=== PATIENT | female | born 1985 | race Caucasian/White ===

== ENCOUNTER 2016-11-23 17:39 | Emergency (ER) | payer OTHER ==
[2016-11-23 17:39] VITALS: BMI 18.5
[2016-11-23 17:51] VITALS: BP 114/71; PULSE 73; RESP 16; TEMP 98.3; O2SAT 100
--- NOTE | 2016-11-23 18:25 | ED PDOC ---
HPI: Abdomen Time Seen by Provider: 11/23/16 17:44 Chief Complaint (Nursing): Abdominal Pain Chief Complaint (Provider): Abdominal Pain History Per: Patient History/Exam Limitations: no limitations Onset/Duration Of Symptoms: Days (x3) Outside of [place] travel?: No Current Symptoms Are (Timing): Constant Location Of Pain/Discomfort: RUQ Associated Symptoms: denies: Nausea, Vomiting, Diarrhea, Chest Pain Exacerbating Factors: Deep Breaths. denies: Food Additional Complaint(s): 31 year old female presents to ED with complaints of RUQ pain x3 days. Notes that the pain is right under her ribcage and that has similar instances in the past, but this is the first time the pain has been constant. (-) nausea, vomiting, diarrhea, chest pain, or SOB. Notes that pain is exacerbated with deep breaths, but not eating. PCP: Aiyana Camacho [place] Past Medical History Reviewed: Historical Data, Nursing Documentation, Vital Signs Vital Signs: Last Vital Signs Temp 98.3 F 11/23/16 17:49 Pulse 73 11/23/16 17:49 Resp 16 11/23/16 17:49 BP 114/71 11/23/16 17:49 Pulse Ox 100 11/23/16 18:30 - Medical History PMH: Hypothyroidism (takes Synthroid) Denies: Chronic Kidney Disease - Family History Family History: States: No Known Family Hx - Home Medications Home Medications: Ambulatory Orders Medication Instructions Recorded Levothyroxine [Synthroid] 100 mcg PO DAILY 03/18/15 - Allergies Allergies/Adverse Reactions: Allergies Allergy/AdvReac Type Severity Reaction Status Date / Time No Known Allergies Allergy Verified 08/20/16 08:47 Review of Systems ROS Statement: Except As Marked, All Systems Reviewed And Found Negative Cardiovascular: Negative for: Chest Pain Respiratory: Negative for: Shortness of Breath Gastrointestinal: Positive for: Abdominal Pain (RUQ ). Negative for: Nausea, Vomiting, Diarrhea Physical Exam - Reviewed Nursing Documentation Reviewed: Yes Vital Signs Reviewed: Yes - Physical Exam Appears: Positive for: Non-toxic, No Acute Distress Skin: Positive for: Normal Color Cardiovascular/Chest: Positive for: Regular Rate, Rhythm. Negative for: Murmur Respiratory: Positive for: Normal Breath Sounds. Negative for: Respiratory Distress Gastrointestinal/Abdominal: Positive for: Tenderness (Palpated RUQ: deep crepitus on initial palpation, not reproducible), Other ((-) McMurphy's) Extremity: Negative for: Deformity Neurologic/Psych: Positive for: Alert, Oriented - Laboratory Results Result Diagrams: 11/23/16 18:25 11/23/16 18:20 - ECG O2 Sat by Pulse Oximetry: 100 (RA) Pulse Ox Interpretation: Normal Medical Decision Making Medical Decision Makin Initial plan: * Labs * Lipase * D Dimer * CXR * UCx * UA * US GALLBLADDER US - Normal CXR - Normal Labs and urine normal except D-Dimer. Endorsed at 1999 pending Aleta. Scribe Attestation: Documented by Fadumo Amin acting as a scribe for Anne-Marie Em PA-C. Scribe Attestation: All medical record entries made by the Scribe were at my direction and personally dictated by me. I have reviewed the chart and agree that the record accurately reflects my personal performance of the history, physical exam, medical decision making, and the department course for this patient. I have also personally directed, reviewed, and agree with the discharge instructions and disposition. Disposition - Clinical Impression Clinical Impression: Abdominal discomfort - Patient ED Disposition Is Patient to be Admitted: Transfer of Care - Disposition Disposition: Transfer of Care Disposition Time: 20:00 Condition: STABLE
[2016-11-23 18:32] LABS: BASO # 0.1 K/uL (0.0-0.2); BASO % 1.1 % (0.0-2.0); EOS # 0.2 K/uL (0.0-0.7); HEMATOCRIT 39.3 % (34.0-47.0); LYMPH # 2.7 K/uL (1.0-4.3); LYMPH % 39.6 % (20.0-40.0); MEAN CELL VOLUME 93.3 fl (81.0-99.0); MEAN CORPUSCULAR HEMOGLOBIN 30.6 pg (27.0-31.0); MEAN CORPUSCULAR HGB CONC 32.8 g/dL (33.0-37.0); MEAN PLATELET VOLUME 9.7 fl (7.2-11.7); MONO % 14.9 % (0.0-10.0); NEUT # 2.8 K/uL (1.8-7.0); NEUT % 41.4 % (50.0-75.0); NRBC % 0.1 % (0.0-0.0); WHITE BLOOD COUNT 6.8 K/uL (4.8-10.8)
[2016-11-23 18:35] LABS: RBC URINE < 1 /hpf (0-3); URINE BACTERIA RARE (<OCC); URINE BILIRUBIN NEGATIVE (NEGATIVE); URINE BLOOD NEGATIVE (NEGATIVE); URINE COLOR STRAW (YELLOW); URINE GLUCOSE (UA) NEG (Normal); URINE KETONE NEGATIVE (NEGATIVE); URINE LEUKOCYTE ESTERASE NEG Leu/uL (Negative); URINE PROTEIN NEGATIVE (NEGATIVE); URINE UROBILINOGEN 0.2-1.0 mg/dL (0.2-1.0)
[2016-11-23 18:59] LABS: ALB/GLOB RATIO 1.3 (1.0-2.1); ALKALINE PHOSPHATASE 45 U/L (38-126); ALT/SGPT 28 U/L (9-52); AST/SGOT 26 U/L (14-36); BILIRUBIN,TOTAL 0.1 mg/dl (0.2-1.3); BLOOD UREA NITROGEN 13 mg/dl (7-17); CALCIUM 9.6 mg/dL (8.4-10.2); CARBON DIOXIDE 24 mmol/L (22-30); CHLORIDE 102 mmol/L (98-107); GFR AFRICAN-AMERICAN > 60; GLUCOSE,RANDOM 87 mg/dL (65-105); LIPASE 195 U/L (23-300); SODIUM 139 mmol/l (132-148); TOTAL PROTEIN 8.8 G/DL (6.3-8.2)
--- NOTE | 2016-11-23 19:32 | US ---
EXAM: US Abdomen Limited, Right Upper Quadrant CLINICAL HISTORY: 31 years old, female; Pain; Abdominal pain; Epigastric; Additional info: Ruq pain, nonfasting TECHNIQUE: Real-time ultrasound of the right upper quadrant with image documentation. EXAM DATE/TIME: 11/23/2016 6:12 PM COMPARISON: MR - ABDOMEN W/WO CONTRAST 05/09/2015 8:27:53 AM FINDINGS: Liver: Liver is unremarkable. There is hepatopedal flow in the main portal vein. Gallbladder: Gallbladder is almost completely empty which limits evaluation. Common bile duct: Common bile duct measures 2.6 mm in diameter. Pancreas: Pancreas is partially obscured by bowel gas. Visualized portion of the pancreas is unremarkable. Right kidney: Right kidney is unremarkable. Aorta: Visualized portions of the aorta and inferior vena cava are unremarkable. IMPRESSION: Collapsed gallbladder consistent with nonfasting state, no ductal dilatation
--- NOTE | 2016-11-23 20:38 | ED PDOC ---
- Laboratory Results Result Diagrams: 11/23/16 18:25 11/23/16 18:20 - ECG O2 Sat by Pulse Oximetry: 100 (RA) - Progress ED Course And Treament: Case endorsed to travel writer from [facility] pending D-Dimer D-dimer resulted, negative. Patient educated on findings, discharged with instructions to follow up PMD 2-3 days. Advised ibuprofen PRN pain. Return to ED for worsening/concerning symptoms. Disposition - Clinical Impression Clinical Impression: Abdominal discomfort - POA Present On Arrival: None - Disposition Disposition: Routine/Home Disposition Time: 20:38 Condition: STABLE Instructions: Abdominal Pain (ED)
--- NOTE | 2016-11-24 10:19 | RAD ---
HISTORY: ruq pain COMPARISON: Chest x-ray performed 03/18/15 TECHNIQUE: Chest PA and lateral FINDINGS: LUNGS: No focal consolidation. Please note that chest x-ray has limited sensitivity for the detection of pulmonary masses. PLEURA: No significant pleural effusion identified. No definite pneumothorax . CARDIOVASCULAR: The cardiomediastinal silhouette appears within normal limits of size. OSSEOUS STRUCTURES: No acute osseous abnormality identified. VISUALIZED UPPER ABDOMEN: Unremarkable. OTHER FINDINGS: None. IMPRESSION: No focal consolidation, significant pleural effusion, or definite pneumothorax identified.
== END 2016-11-23 21:00 | disposition home or self-care (01) ==
LOC: H.ER 17:39
DX: R10.11 Right upper quadrant pain (principal); E03.9 Hypothyroidism, unspecified

== ENCOUNTER 2017-11-11 08:18 | Day surgery (SDC) | payer BC ==
[2017-11-11 10:12] VITALS: BMI 21.4
[2017-11-11] MEDS ORDERED: Lactated Ringer's 500 ML IV ONE (10:16)
[2017-11-11 10:33] VITALS: O2SAT 100
[2017-11-11] MEDS ORDERED: Propofol 10 mg/ml Inj (20 ML) ONE (10:34)
[2017-11-11 11:20] VITALS: BP 96/59; PULSE 68; RESP 17; TEMP 97.2
== END 2017-11-11 14:43 | disposition home or self-care (01) ==
LOC: H.ENDO 08:18 → EDSTATUS 10:30 → H.ENDO 14:43
PROVIDERS: ATTEND Internal Medicine Gastroenterology
DX: K50.90 Crohn's disease, unspecified, without complications (principal); E03.9 Hypothyroidism, unspecified; K64.9 Unspecified hemorrhoids
CPT/HCPCS: 45380; 88305; J2001; J2704; J7120